=== PATIENT | male | born 1965 | race Caucasian/White ===

== ENCOUNTER 2016-07-11 22:10 | Emergency (ER) | payer BC, MEDICARE ==
[~2016-07-11] VITALS: Ht 180.3 cm; Wt 99.0 kg
[~2016-07-11 22:10] MED LIST: /CARB20TAB OR; CATA0.1T; DIOV160T5; DIOV320T OR; FURO20TA2 OR; LOPR50TA; PROZ20CA; SIMV20TA2 OR; TEGR200T; VICO5TAB OR
[2016-07-11] MEDS ORDERED: FLUO10CA8 PO (22:24)
[2016-07-11] MEDS ORDERED: FENO48TA2 PO (22:24)
[2016-07-11] MEDS ORDERED: NORVASC PO (22:24)
[2016-07-11] MEDS ORDERED: NS 1,000 ML IV ONE (23:00)
[2016-07-11] MEDS ORDERED: ONDANSETRON 4MG/2ML VIAL (J2405) IV ONE (23:00)
[2016-07-11] MEDS ORDERED: IPRATROPIUM 0.5MG/ALBUTEROL 2.5MG INH SOL UD 3ML (DUONEB)(J7620) NEB ONE (23:00)
[2016-07-11 23:13] LABS: BASO % 0.2 % (0.0-1.0); EOS # 0.1 K/mm3 (0.0-0.50); EOS % 0.9 % (0.0-3.0); LARGE UNSTAINED CELL # 0.1 K/mm3 (0.0-0.4); LARGE UNSTAINED CELL % 0.8 % (0.0-4.0); LYMPH # 1.2 K/mm3 (1.5-4.5); LYMPH % 7.5 % (24.0-44.0); MEAN CORPUSCULAR HEMOGLOBIN 32.2 pg (27.0-33.0); MEAN CORPUSCULAR HGB CONC 35.4 g/dl (32.0-36.5); MEAN CORPUSCULAR VOLUME 90.9 fl (80.0-96.0); MONO # 0.6 K/mm3 (0.0-0.8); MONO % 4.1 % (0.0-5.0); NEUTROPHILS # 12.3 K/mm3 (1.8-7.7); NEUTROPHILS % 86.6 % (36.0-66.0); PLATELET COUNT, AUTOMATED 214 k/mm3 (150-450); RED CELL DISTRIBUTION WIDTH 12.1 % (11.5-14.5); WHITE BLOOD COUNT 14.2 K/mm3 (4.0-10.0)
[2016-07-11 23:37] LABS: ANION GAP 9 MEQ/L (8-16); BLOOD UREA NITROGEN 15 MG/DL (7-18); CALCIUM LEVEL 8.7 MG/DL (8.5-10.1); CARBON DIOXIDE LEVEL 26 MEQ/L (21-32); CHLORIDE LEVEL 95 MEQ/L (98-107); CREATININE FOR GFR 0.97 MG/DL (0.70-1.30); GLOMERULAR FILTRATION RATE > 60.0 (>56); GLUCOSE, FASTING 106 MG/DL (70-105); POTASSIUM SERUM 4.1 MEQ/L (3.5-5.1); SODIUM LEVEL 130 MEQ/L (136-145)
[2016-07-11] MEDS: fentaNYL 100 MCG/2 ML INJECTION (J3010) IV PRN (23:39)
[2016-07-12] MEDS ORDERED: BENZONATATE 100 MG CAP PO ONE (00:30)
[2016-07-12] MEDS ORDERED: LevoFLOXacin IV 750 MG in APPROPRIATE DILUENT 1 EA IV ONE (00:30)
[2016-07-12] MEDS ORDERED: KETOROLAC 30 MG/ML VIAL (J1885) IV ONE (00:30)
[2016-07-12] MEDS: fentaNYL 100 MCG/2 ML INJECTION (J3010) IV PRN ×3 (00:33→02:38)
[2016-07-12 02:43] VITALS: BP 112/62
[2016-07-12] MEDS ORDERED: LEVO750T33 PO ×2 (02:53→23:45)
[2016-07-12] MEDS ORDERED: OXYC1TAB23 PO ×2 (02:53→23:45)
[2016-07-12] MEDS ORDERED: OXYCODONE/APAP 5MG/325MG(BULK FOR ED) 1 TABLET PO ONE (03:00)
[2016-07-12] MEDS ORDERED: ALBUTEROL 90 MCG/ACT 8GM HFA INHALER INH PRN (03:00)
--- NOTE | 2016-07-12 08:16 | REP ---
Clinical: Chest pain. Technique: PA and lateral. Comparison: 06/09/2009. Findings: The mediastinum and cardiac silhouette are relatively normal. However, subtle adenopathy as well as left suprahilar infiltrate cannot be excluded. No further consolidation, effusion, or pneumothorax. Skeletal structures are intact. Impression: Cannot exclude hilar adenopathy and small left suprahilar infiltrate. Signed by Yared Trevizo MD 07/12/2016 08:07 A
--- NOTE | 2016-07-12 09:28 | ECGEPIP ---
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
[2016-07-12] MEDS ORDERED: AMLO10TA2 PO (18:40)
[2016-07-12] MEDS ORDERED: FENO160T10 PO (23:45)
[2016-07-12] MEDS ORDERED: VALS320T PO (23:45)
[2016-07-12] MEDS ORDERED: ATOR40TA PO (23:45)
[2016-07-12] MEDS ORDERED: CARB1TAB20 PO (23:45)
[2016-07-12] MEDS ORDERED: METO25TA74 PO (23:46)
[2016-07-12] MEDS ORDERED: HYDR-4266 PO (23:46)
[2016-07-12] MEDS ORDERED: IBUPOTC PO (23:47)
== END 2016-07-12 03:20 | disposition home or self-care (01) ==
LOC: M ED 23:22
DX: J18.1 Lobar pneumonia, unspecified organism (principal); F17.200 Nicotine dependence, unspecified, uncomplicated; Z79.899 Other long term (current) drug therapy; Z88.5 Allergy status to narcotic agent

== ENCOUNTER 2016-07-12 18:28 | Inpatient (IN) | payer MEDICARE ==
[~2016-07-12] VITALS: Ht 182.9 cm; Wt 99.5 kg
[~2016-07-12 18:28] MED LIST changes: +FENO48TA2 PO; +FLUO10CA8 PO; +LEVO750T33 PO; +NORVASC PO; +OXYC1TAB23 PO
[2016-07-12] MEDS ORDERED: AMLO10TA2 PO (18:40)
--- NOTE | 2016-07-12 19:17 | REP ---
Clinical: Dyspnea and cough. Comparison: 07/11/2016. Findings: Left suprahilar opacity has increased from prior examination. Trace left basilar atelectasis noted. Right hemithorax appears clear. No pneumothorax. Mediastinum and cardiac silhouette normal. Impression: Left suprahilar infiltrate/opacity and left basilar atelectasis. Signed by Yared Trevizo MD 07/12/2016 07:08 P
[2016-07-12] MEDS ORDERED: IPRATROPIUM 0.5MG/ALBUTEROL 2.5MG INH SOL UD 3ML (DUONEB)(J7620) As Ordered ONE (19:38)
[2016-07-12] MEDS: IPRATROPIUM 0.5MG/ALBUTEROL 2.5MG INH SOL UD 3ML (DUONEB)(J7620) NEB SCH ×3 (19:42→20:25)
[2016-07-12] MEDS ORDERED: PIPERACILLIN/TAZOBACTAM SOD 3.375 GM in D5W MINI-BAG PLUS 50 ML IV ONE (19:45)
[2016-07-12] MEDS ORDERED: ONDANSETRON 4MG/2ML VIAL (J2405) IV ONE (19:45)
[2016-07-12] MEDS ORDERED: ONDANSETRON 4MG/2ML VIAL (J2405) As Ordered ONE (19:45)
--- NOTE | 2016-07-12 19:53 | ECGEPIP ---
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
[2016-07-12] MEDS ORDERED: NS 1,000 ML IV ONE (20:00)
[2016-07-12] MEDS: HYDROmorphone HCL 1 MG/ML SYRINGE (J1170) IV PRN ×2 (20:06→23:11)
[2016-07-12] MEDS ORDERED: ISOVUE-370 76% 100ML VIAL (Q9967) As Ordered ONE (20:12)
--- NOTE | 2016-07-12 21:40 | REPUSA ---
CT angiogram of the chest Clinical statement: shortness of breath. Technique: Multiple axial CT images were obtained from the thoracic inlet through the upper abdomen a fter a bolus administration of nonionic intravenous contrast. Coronal and sagittal reconstructions we re also obtained. No comparison is available. Findings: The pulmonary arteries are well-opacified with contrast, with no intraluminal filling defec ts to suggest embolism. The thoracic aorta is unremarkable. Thyroid gland is within normal limits. Th ere is no thoracic lymphadenopathy. There is consolidation and infiltrate in the left upper lobe. The re is a moderate left-sided pleural effusion. There is minimal atelectasis in the right lung base. Sm all moderate emphysema is noted. Limited imaging of the upper abdomen is unremarkable. There are no s uspicious osseous lesions. Impression: 1. No evidence of pulmonary embolism. 2. Left upper lobe pneumonia. 3. Small left-sided pleural effusion. 4. Minimal atelectasis in the right lung base.
[2016-07-12] MEDS ORDERED: HYDROmorphone HCL 1 MG/ML SYRINGE (J1170) IV PRN (23:00)
[2016-07-12] MEDS ORDERED: OXYC1TAB23 PO (23:45)
[2016-07-12] MEDS ORDERED: ATOR40TA PO (23:45)
[2016-07-12] MEDS ORDERED: FENO160T10 PO (23:45)
[2016-07-12] MEDS ORDERED: CARB1TAB20 PO (23:45)
[2016-07-12] MEDS ORDERED: VALS320T PO (23:45)
[2016-07-12] MEDS ORDERED: LEVO750T33 PO (23:45)
[2016-07-12] MEDS ORDERED: METO25TA74 PO (23:46)
[2016-07-12] MEDS ORDERED: HYDR-4266 PO (23:46)
[2016-07-12] MEDS ORDERED: IBUPOTC PO (23:47)
[2016-07-13] VITALS (8 sets, daily range): BP systolic 117–141; BP diastolic 61–72; PULSE 77–83
[2016-07-13] MEDS ORDERED: NS 1,000 ML IV SCH (00:03)
[2016-07-13] MEDS ORDERED: ONDANSETRON 4MG/2ML VIAL (J2405) IV PRN (00:15)
[2016-07-13] MEDS ORDERED: ALBUTEROL SULFATE 2.5 MG/0.5 ML INH NEB SOLN INH PRN (00:30)
--- NOTE | 2016-07-13 00:55 | HPEPDOC ---
Medical History and Physical Date of Admission Jul 13, 2016 at 00:03 History and Physical PRIMARY CARE PROVIDER: ATTENDING: Toya Corona MD CHIEF COMPLAINT: SOB/Cough HISTORY OF PRESENT ILLNESS: This is a 50-year-old male past medical history alcohol abuse, pancreatitis, cerebral aneurysm status post clipping, tobacco abuse who presents complaining of shortness of breath and cough. Patient states that his shortness of breath and cough started 5-6 days ago. No sick contacts or recent travels. Patient was seen last night in the emergency department, found to have a left upper lobe pneumonia, placed on Levaquin and discharged home. Patient states he went home and his dyspnea and cough progressively worsened. Patient had fevers and chills, with a notable fever 100.7 in the ED. No nausea/ vomiting/abdominal pain/diarrhea. PAST MEDICAL HISTORY: As per HPI PAST SURGICAL HISTORY: None SOCIAL HISTORY: Smoked 1 1/2-2ppd since he was 16. Occasional alcohol (6pack/ week), no illicit drugs. Lives with . FAMILY HISTORY:Non contrib. ALLERGIES: Please see below. REVIEW OF SYSTEMS: HEENT: Denies sore throat/headache CARDIOVASCULAR: Denies chest pain/palpitations RESPIRATORY: + shortness of breath/cough GASTROINTESTINAL: denies nausea/vomiting GENITOURINARY: Denies dysuria/urinary urgency. MUSCULOSKELETAL: Denies myalgias/arthralgias NEUROLOGICAL: Denies any focal weakness Rest of ROS negative. HOME MEDICATIONS: Please see below. PHYSICAL EXAMINATION: Vitals: (see below) General: No acute distress, laying comfortably in bed. HEENT: Moist mucous membranes. Neck: No JVD or lymphadenopathy Cardiac: RRR, No murmurs Pulm: Diminished breath sound left. Mild exp wheezing. No rhonchi Abd: NT/ND + BS Ext: No edema or cyanosis LABORATORY DATA: See below. IMAGING: CTA Chest 07/12/16 Findings: The pulmonary arteries are well-opacified with contrast, with no intraluminal filling defects to suggest embolism. The thoracic aorta is unremarkable. Thyroid gland is within normal limits. There is no thoracic lymphadenopathy. There is consolidation and infiltrate in the left upper lobe. There is a moderate left-sided pleural effusion. There is minimal atelectasis in the right lung base. Small moderate emphysema is noted. Limited imaging of the upper abdomen is unremarkable. There are no suspicious osseous lesions. Impression: 1. No evidence of pulmonary embolism. 2. Left upper lobe pneumonia. 3. Small left-sided pleural effusion. 4. Minimal atelectasis in the right lung base. MICROBIOLOGY: Please see below. ASSESSMENT/PLAN: 1. Sepsis 2/2 CAP - Seen in ED last night, now with worsening cough/sob. Fevers/ chills, leukocytosis, tachypnea. Parapneumonia effusion on CTA chest. Levaquin IV, nebs, Mucinex. Blood/sputum cx. Urine strep/legionella. IVF. Lactic acid 1.1. Will monitor in PCU. 2. COPD exacerbation 2/2 #1. Nebs, solumedrol. 3. HTN - hold home meds as pt is borderline hypotensive. 4. Tobacco abuse - cessation counseling 5. H/o pancreatitis 6. H/o cerebral aneurysm s/p clipping 7. DVT prophy- enoxaparin Pt will be followed by Dr. Palma Pollock starting 07/13/16 at 7am. Vital Signs Vital Signs Date Time Temp Pulse Resp B/P Pulse Ox O2 Delivery O2 Flow Rate FiO2 07/12/16 18:28 98.0 80 21 126/62 95 Room Air Laboratory Data Labs 24H Laboratory Tests 2 07/12/16 19:18: Anion Gap 11, White Blood Count 15.7H, Red Blood Count 3.89L, Hemoglobin 12.5L, Hematocrit 34.7L, Mean Corpuscular Volume 89.2, Mean Corpuscular Hemoglobin 32.1 , Mean Corpuscular Hemoglobin Concent 36.0, Red Cell Distribution Width 11.8, Platelet Count 211, Neutrophils (%) (Auto) 85.5H, Lymphocytes (%) (Auto) 7.8L, Monocytes (%) (Auto) 5.0, Eosinophils (%) (Auto) 0.1, Basophils (%) (Auto) 0.1, Neutrophils # (Auto) 13.4H, Lymphocytes # (Auto) 1.2L, Monocytes # (Auto) 0.8, Eosinophils # (Auto) 0.0, Basophils # (Auto) 0.0, Blood Urea Nitrogen 15, Creatinine 0.93, Sodium Level 128L, Potassium Level 3.9, Chloride Level 95L, Carbon Dioxide Level 22, Calcium Level 7.8L, Glomerular Filtration Rate > 60.0, Lactic Acid Level 1.1, Large Unclassified Cells # 0.2, Large Unclassified Cells % 1.4 07/12/16 19:48: Blood Gas Bicarbonate Standard 24.8, Venous Blood Base Excess 0.4, Venous Blood pH 7.463H, Venous Blood Partial Pressure CO2 33.7L, Venous Blood Partial Pressure O2 87.8H, Venous Blood Total Carbon Dioxide 24.6, Venous Blood HCO3 23.6, Venous Blood Oxygen Saturation 97.3H 07/13/16 00:13: CBC/BMP Laboratory Tests 07/12/16 19:18 Calcium Level 7.8 L, Red Blood Count 3.89 L, Mean Corpuscular Volume 89.2, Mean Corpuscular Hemoglobin 32.1, Mean Corpuscular Hemoglobin Concent 36.0, Red Cell Distribution Width 11.8, Neutrophils (%) (Auto) 85.5 H, Lymphocytes (%) (Auto) 7.8 L, Monocytes (%) (Auto) 5.0, Eosinophils (%) (Auto) 0.1, Basophils (%) (Auto ) 0.1, Neutrophils # (Auto) 13.4 H, Lymphocytes # (Auto) 1.2 L, Monocytes # ( Auto) 0.8, Eosinophils # (Auto) 0.0, Basophils # (Auto) 0.0 Microbiology Microbiology 07/12/16 Blood Culture, Received Pending 07/12/16 Blood Culture, Received Pending Home Medications Scheduled (Valsartan/Hydrochlorothia 320-12.5 mg) 1 Tab Tab 1 TAB PO DAILY Amlodipine Besylate (Amlodipine Besylate) 10 Mg Tab 10 MG PO DAILY Atorvastatin Calcium (Atorvastatin Calcium) 40 Mg Tab 40 MG PO DAILY Carbamazepine (Carbamazepine) 200 Mg Tab 200 MG PO TID Fenofibrate (Fenofibrate) 160 Mg Tab 160 MG PO DAILY Fluoxetine Hcl (Fluoxetine) 10 Mg Cap Unknown Dose PO DAILY Hydralazine HCl (Hydralazine HCl) 25 Mg Tab 25 MG PO TID Levofloxacin Hemihydrate (Levofloxacin) 750 Mg Tab 750 MG PO DAILY FOR 7 DAYS; STARTED 07/12/2016 Metoprolol Succinate (Metoprolol Succinate ER) 25 Mg Tab 25 MG PO DAILY Scheduled PRN Ibuprofen (Ibuprofen) 200 Mg Tab 400 MG PO Q6H PRN PRN PAIN Oxycodone/Acetaminophen (Oxycodone/Acetaminophen 5-325 mg) 1 Tab Tab 1 TAB PO Q6H PRN PRN PAIN Allergies Coded Allergies: Morphine (Verified Allergy, Unknown, 07/11/16) TOYA CORONA MD Jul 13, 2016 00:55
[2016-07-13] MEDS: methylPREDNISolone INJ 40 MG/1 ML VIAL (J2920) IV SCH ×3 (02:41→23:56)
[2016-07-13] MEDS: IBUPROFEN 400 MG TAB PO PRN ×3 (02:44→20:35)
[2016-07-13] MEDS ORDERED: VANCOMYCIN HCL 1,000 MG, VIAL MATE ADAPTER 1 EACH in D5W 250 ML IV ONE (03:00)
[2016-07-13] MEDS: IPRATROPIUM 0.5MG/ALBUTEROL 2.5MG INH SOL UD 3ML (DUONEB)(J7620) NEB SCH ×5 (03:33→19:51)
--- NOTE | 2016-07-13 06:48 | PHACANCOPD ---
PHARMACY VANCOMYCIN DOSING Pt Demographics Demographics Patient Age:50 , Weight:99.100 , Gender: male Adjusted Body Weight Date: 07/13/16, Adjusted Body Weight: [86.2] Kg Vancomycin Vancomycin indication: CAP/SEPSIS Vancomycin Target Ranges: 15-20 mcg/ml Vancomycin Load Y/N: No Load Dose Date Time Vancomycin Load Dose: Date: Time: Vancomycin Dose Date: 07/13/16. Current Vancomycin Dose: [1GM@03,THEN 1 gm IV Q8H@08] Intermittent Dosing?: No Labs Labs Laboratory Tests 07/12/16 19:18 Calcium Level 7.8 L, Red Blood Count 3.89 L, Mean Corpuscular Volume 89.2, Mean Corpuscular Hemoglobin 32.1, Mean Corpuscular Hemoglobin Concent 36.0, Red Cell Distribution Width 11.8, Neutrophils (%) (Auto) 85.5 H, Lymphocytes (%) (Auto) 7.8 L, Monocytes (%) (Auto) 5.0, Eosinophils (%) (Auto) 0.1, Basophils (%) (Auto ) 0.1, Neutrophils # (Auto) 13.4 H, Lymphocytes # (Auto) 1.2 L, Monocytes # ( Auto) 0.8, Eosinophils # (Auto) 0.0, Basophils # (Auto) 0.0 Micro Microbiology 07/12/16 Blood Culture, Received Pending 07/12/16 Blood Culture, Received Pending 07/13/16 Influenza Virus Type A Antigen - Final, Complete 07/13/16 Influenza Virus Type B Antigen - Final, Complete 07/13/16 Gram Stain, Received Pending 07/13/16 Sputum Culture, Received Pending Creatinine Clearance Date:07/13/16. Creatinine Clearance: [114.5]CALCULATED. Pending Labs Vancomycin trough due 07/14 @0600 Assessment and Plan Maintaining Current Dose?: Yes Reason for dose change: No Dose Change Pharmacist Note Pharmacist Note Date: 07/13/16. Pharmacist note:50 YO M SCR=0.93 XTTK=036.5(calculated) allergy: morphine:admitted for treatment of CAP/sepsis(15-20);has ordered :Levofloxacin 500mg IVdaily & Vancomycin per consult. Gave 1 Gram@0300 07/13,followed by a regimen of 1 gram IV q8h beginning at 1000.Vancomycin trough is ordered with am labs on 07/14.Will continue to follow levels and labs JHON HUSTON PHARMACY Jul 13, 2016 06:48
[2016-07-13] MEDS: VANCOMYCIN HCL 1,000 MG, VIAL MATE ADAPTER 1 EACH in D5W 250 ML IV SCH ×3 (08:32→23:56)
[2016-07-13] MEDS ORDERED: LevoFLOXacin IV 500 MG in APPROPRIATE DILUENT 1 EA IV SCH (09:00)
[2016-07-13] MEDS: guaiFENesin ER 600 MG TAB PO SCH ×2 (09:05→20:34)
[2016-07-13] MEDS: carBAMazepine 200 MG TAB PO SCH ×3 (09:05→20:34)
[2016-07-13] MEDS: ATORVASTATIN 20 MG TAB PO SCH (09:05)
[2016-07-13] MEDS: ENOXAPARIN 40 MG/0.4 ML SYRINGE (J1650) SC SCH (09:05)
--- NOTE | 2016-07-13 09:52 | IPNPDOC ---
Subjective Date Seen The patient was seen on 07/13/16. Subjective Chief Complaint/HPI The patient is a 50-year-old male admitted with a reason for visit of Left Upper Lobe Pneumonia/Sepsis. Events since last encounter cough and shortness of breath much improved today , no further fever no chills, no nausea or vomiting or diarrhea. Objective Physical Examination General Exam: Positive: Alert, Cooperative, No Acute Distress Eye Exam: Positive: Conjunctiva & lids normal, EOMI, PERRLA, Negative: Sclera icteric ENT Exam: Positive: Atraumatic, Mucous membr. moist/pink, Pharynx Normal Neck Exam: Positive: Supple, Negative: JVD, thyromegaly Chest Exam: Positive: Clear to auscultation, Normal air movement Heart Exam: Positive: Normal S1, Normal S2, Rate Normal, Regular Rhythm, Negative: Murmurs, Rubs Abdomen Exam: Positive: Normal bowel sounds, Soft, Negative: Hepatospenomegaly, Tenderness Extremity Exam: Positive: Normal pulses, Negative: Clubbing, Cyanosis, Edema Skin Exam: Positive: Nl turgor and temperature, Negative: Breakdown, Rash Assessment /Plan Problems (1) Left upper lobe pneumonia Status: Acute Problem Text: will continue levofloxacin and vncomycin. (2) Sepsis Status: Acute Problem Text: from pneumonia continue antibiotics. (3) Hyponatremia Status: Chronic Problem Text: chronic will monitor. (4) Alcohol abuse Status: Chronic Problem Text: last drink 5 days ago no signs of withdrawal. (5) History of cerebral aneurysm repair Status: Chronic (6) Depression Status: Chronic (7) Tobacco abuse Status: Chronic Plan/VTE VTE Prophylaxis Ordered?: Yes VS, [facility]O, [facility] Vital Signs/I&O Vital Signs Date Time Temp Pulse Resp B/P Pulse Ox O2 Delivery O2 Flow Rate FiO2 07/13/16 08:00 98.6 80 22 132/72 94 Room Air I&O- Last 24 Hours up to 6 AM 07/13/16 06:00 Intake Total 600 ml Balance 600 ml Laboratory Data 24H LABS Laboratory Tests 2 07/12/16 19:18: Anion Gap 11, White Blood Count 15.7H, Red Blood Count 3.89L, Hemoglobin 12.5L, Hematocrit 34.7L, Mean Corpuscular Volume 89.2, Mean Corpuscular Hemoglobin 32.1 , Mean Corpuscular Hemoglobin Concent 36.0, Red Cell Distribution Width 11.8, Platelet Count 211, Neutrophils (%) (Auto) 85.5H, Lymphocytes (%) (Auto) 7.8L, Monocytes (%) (Auto) 5.0, Eosinophils (%) (Auto) 0.1, Basophils (%) (Auto) 0.1, Neutrophils # (Auto) 13.4H, Lymphocytes # (Auto) 1.2L, Monocytes # (Auto) 0.8, Eosinophils # (Auto) 0.0, Basophils # (Auto) 0.0, Blood Urea Nitrogen 15, Creatinine 0.93, Sodium Level 128L, Potassium Level 3.9, Chloride Level 95L, Carbon Dioxide Level 22, Calcium Level 7.8L, Glomerular Filtration Rate > 60.0, Lactic Acid Level 1.1, Large Unclassified Cells # 0.2, Large Unclassified Cells % 1.4 07/12/16 19:48: Blood Gas Bicarbonate Standard 24.8, Venous Blood Base Excess 0.4, Venous Blood pH 7.463H, Venous Blood Partial Pressure CO2 33.7L, Venous Blood Partial Pressure O2 87.8H, Venous Blood Total Carbon Dioxide 24.6, Venous Blood HCO3 23.6, Venous Blood Oxygen Saturation 97.3H 07/13/16 00:13: Blood Gas Bicarbonate Standard 23.1, Venous Blood Base Excess -1.5, Venous Blood pH 7.426, Venous Blood Partial Pressure CO2 34.7L, Venous Blood Partial Pressure O2 58.2H, Venous Blood Total Carbon Dioxide 23.4L, Venous Blood HCO3 22.3L, Venous Blood Oxygen Saturation 91.6H, Creatine Kinase MB 1.0, Creatine Kinase MB Relative Index 0.87, Total Creatine Kinase 114, Troponin I < 0.02 07/13/16 02:24: 07/13/16 07:24: Blood Urea Nitrogen 11, Creatinine 0.73, Sodium Level 129L, Potassium Level 3.8 , Chloride Level 97L, Carbon Dioxide Level 23, Calcium Level 8.4L, Aspartate Amino Transf (AST/SGOT) 18, Alanine Aminotransferase (ALT/SGPT) 18, Alkaline Phosphatase 56, Total Bilirubin 0.4, Total Protein 6.6, Albumin 2.8L, Albumin/ Globulin Ratio 0.74L, Anion Gap 9, White Blood Count 20.0H, Red Blood Count 3.71L, Hemoglobin 12.0L, Hematocrit 34.3L, Mean Corpuscular Volume 92.3, Mean Corpuscular Hemoglobin 32.3, Mean Corpuscular Hemoglobin Concent 34.9, Red Cell Distribution Width 12.1, Platelet Count 193, Neutrophils (%) (Auto) 91.3H, Lymphocytes (%) (Auto) 3.7L, Monocytes (%) (Auto) 4.0, Eosinophils (%) (Auto) 0.1, Basophils (%) (Auto) 0.1, Neutrophils # (Auto) 18.3H, Lymphocytes # (Auto) 0.9L, Monocytes # (Auto) 0.8, Eosinophils # (Auto) 0.0, Basophils # (Auto) 0.0, C-Reactive Protein, Quantitative 27.00H, Creatine Kinase MB 1.1, Creatine Kinase MB Relative Index 0.82, Glomerular Filtration Rate > 60.0, Large Unclassified Cells # 0.2, Large Unclassified Cells % 0.9, Total Creatine Kinase 133, Troponin I < 0.02 CBC/BMP Laboratory Tests 07/12/16 19:18 Calcium Level 7.8 L, Red Blood Count 3.89 L, Mean Corpuscular Volume 89.2, Mean Corpuscular Hemoglobin 32.1, Mean Corpuscular Hemoglobin Concent 36.0, Red Cell Distribution Width 11.8, Neutrophils (%) (Auto) 85.5 H, Lymphocytes (%) (Auto) 7.8 L, Monocytes (%) (Auto) 5.0, Eosinophils (%) (Auto) 0.1, Basophils (%) (Auto ) 0.1, Neutrophils # (Auto) 13.4 H, Lymphocytes # (Auto) 1.2 L, Monocytes # ( Auto) 0.8, Eosinophils # (Auto) 0.0, Basophils # (Auto) 0.0 07/13/16 07:24 Calcium Level 8.4 L, Red Blood Count 3.71 L, Mean Corpuscular Volume 92.3, Mean Corpuscular Hemoglobin 32.3, Mean Corpuscular Hemoglobin Concent 34.9, Red Cell Distribution Width 12.1, Neutrophils (%) (Auto) 91.3 H, Lymphocytes (%) (Auto) 3.7 L, Monocytes (%) (Auto) 4.0, Eosinophils (%) (Auto) 0.1, Basophils (%) (Auto ) 0.1, Neutrophils # (Auto) 18.3 H, Lymphocytes # (Auto) 0.9 L, Monocytes # ( Auto) 0.8, Eosinophils # (Auto) 0.0, Basophils # (Auto) 0.0, Aspartate Amino Transf (AST/SGOT) 18, Alanine Aminotransferase (ALT/SGPT) 18, Alkaline Phosphatase 56, Total Bilirubin 0.4, Total Protein 6.6, Albumin 2.8 L Microbiology Microbiology 07/12/16 Blood Culture, Received Pending 07/12/16 Blood Culture, Received Pending 07/13/16 Influenza Virus Type A Antigen - Final, Complete 07/13/16 Influenza Virus Type B Antigen - Final, Complete 07/13/16 Gram Stain - Final, Complete 07/13/16 Sputum Culture - Final, Complete CLARENCE LORA MD Jul 13, 2016 09:52
[2016-07-13] MEDS: LevoFLOXacin 500 MG TABLET PO SCH (11:35)
[2016-07-14] MEDS: IPRATROPIUM 0.5MG/ALBUTEROL 2.5MG INH SOL UD 3ML (DUONEB)(J7620) NEB SCH ×6 (00:16→20:22)
[2016-07-14 02:00] VITALS: BP 148/70
[2016-07-14] MEDS: LevoFLOXacin 500 MG TABLET PO SCH (05:24)
[2016-07-14 06:00] VITALS: BP 152/71
--- NOTE | 2016-07-14 08:30 | PHACANCOPD ---
PHARMACY VANCOMYCIN DOSING Pt Demographics Demographics Patient Age:50 , Weight:99.500 , Gender: male Adjusted Body Weight Date: 07/13/16, Adjusted Body Weight: [86.2] Kg Events Past 24 Hours Events Past 24 Hours: YES: Change in CrCl Vancomycin Vancomycin indication: CAP/SEPSIS Vancomycin Target Ranges: 15-20 mcg/ml Vancomycin Load Y/N: No Load Dose Date Time Vancomycin Load Dose: Date: Time: Vancomycin Dose Date: 07/13/16. Current Vancomycin Dose: [1GM@03,THEN 1 gm IV Q8H@08] Intermittent Dosing?: No Labs Labs Item Value Date Time White Blood Count 20.0 K/mm3 H 07/13/16 0724 White Blood Count 15.8 K/mm3 H 07/14/16 0543 Creatinine 0.73 MG/DL 07/13/16 0724 Creatinine 0.56 MG/DL L 07/14/16 0543 Micro Microbiology 07/12/16 Blood Culture - Preliminary, Resulted No growth after 24 hours . All specim... 07/12/16 Blood Culture - Preliminary, Resulted No growth after 24 hours . All specim... 07/13/16 Influenza Virus Type A Antigen - Final, Complete 07/13/16 Influenza Virus Type B Antigen - Final, Complete 07/13/16 Gram Stain - Final, Complete 07/13/16 Sputum Culture - Final, Complete Creatinine Clearance Date:07/13/16. Creatinine Clearance: [114.5]CALCULATED. Pending Labs Date:07/14/16. Creatinine Clearance: [171.3ML/MIN.]. Vancomycin trough due 07/14 @0600 Assessment and Plan Maintaining Current Dose?: Yes Reason for dose change: Trough too low Pharmacist Note Pharmacist Note Date: 07/14/16. Pharmacist note: Pts trough came back today @ 5:43pm @8.4mcg/ml. An additional 1g was scheduled at 9am, 1g q8h will continue @16. A trough is scheduled for 07/15/16 @0700. We will continue to monitor and adjust dose as needed. Date: 07/13/16. Pharmacist note:50 YO M SCR=0.93 EEWI=973.5(calculated) allergy: morphine:admitted for treatment of CAP/sepsis(15-20);has ordered :Levofloxacin 500mg IVdaily & Vancomycin per consult. Gave 1 Gram@0300 07/13,followed by a regimen of 1 gram IV q8h beginning at 1000.Vancomycin trough is ordered with am labs on 07/14.Will continue to follow levels and labs DIANA TRUJILLO PHARMACY Jul 14, 2016 08:30
[2016-07-14] MEDS ORDERED: VANCOMYCIN HCL 1,000 MG, VIAL MATE ADAPTER 1 EACH in D5W 250 ML IV ONE (09:00)
[2016-07-14] MEDS: guaiFENesin ER 600 MG TAB PO SCH ×2 (09:25→20:29)
[2016-07-14] MEDS: VANCOMYCIN HCL 1,000 MG, VIAL MATE ADAPTER 1 EACH in D5W 250 ML IV SCH ×3 (09:25→23:29)
[2016-07-14] MEDS: ATORVASTATIN 20 MG TAB PO SCH (09:25)
[2016-07-14] MEDS: predniSONE 20 MG TAB PO SCH (09:25)
[2016-07-14] MEDS: carBAMazepine 200 MG TAB PO SCH ×3 (09:25→20:29)
[2016-07-14] MEDS: ENOXAPARIN 40 MG/0.4 ML SYRINGE (J1650) SC SCH (09:26)
[2016-07-14 10:00] VITALS: BP 155/83
--- NOTE | 2016-07-14 10:37 | IPNPDOC ---
Subjective Date Seen The patient was seen on 07/14/16. Subjective Chief Complaint/HPI The patient is a 50-year-old male admitted with a reason for visit of Left Upper Lobe Pneumonia/Sepsis. Events since last encounter feeling better , still has some cough and pleuritic chest pain which worsens with coughing, low grade fever last night. Objective Physical Examination General Exam: Positive: Alert, Cooperative, No Acute Distress Eye Exam: Positive: Conjunctiva & lids normal, EOMI, PERRLA, Negative: Sclera icteric ENT Exam: Positive: Atraumatic, Mucous membr. moist/pink, Pharynx Normal Neck Exam: Positive: Supple, Negative: JVD, thyromegaly Chest Exam: Positive: Clear to auscultation, Normal air movement Heart Exam: Positive: Normal S1, Normal S2, Rate Normal, Regular Rhythm, Negative: Murmurs, Rubs Abdomen Exam: Positive: Normal bowel sounds, Soft, Negative: Hepatospenomegaly, Tenderness Extremity Exam: Positive: Normal pulses, Negative: Clubbing, Cyanosis, Edema Skin Exam: Positive: Nl turgor and temperature, Negative: Breakdown, Rash Assessment /Plan Problems (1) Left upper lobe pneumonia Status: Acute Problem Text: will continue levofloxacin and vncomycin. (2) Hyponatremia Status: Chronic Problem Text: chronic will monitor. (3) Alcohol abuse Status: Chronic Problem Text: last drink 5 days ago no signs of withdrawal. (4) History of cerebral aneurysm repair Status: Chronic (5) Depression Status: Chronic (6) Tobacco abuse Status: Chronic (7) Sepsis Status: Resolved Problem Text: from pneumonia continue antibiotics. Plan/VTE VTE Prophylaxis Ordered?: Yes VS, I&O, 24H, [facility] Vital Signs/I&O Vital Signs Date Time Temp Pulse Resp B/P Pulse Ox O2 Delivery O2 Flow Rate FiO2 07/14/16 06:00 98.0 74 18 152/71 95 Room Air I&O- Last 24 Hours up to 6 AM 07/14/16 05:59 Intake Total 2630 ml Output Total 2475 ml Balance 155 ml Laboratory Data 24H LABS Laboratory Tests 2 07/13/16 16:01: Creatine Kinase MB 1.4, Creatine Kinase MB Relative Index 1.07, Total Creatine Kinase 130, Troponin I < 0.02 07/14/16 05:43: Blood Urea Nitrogen 8, Creatinine 0.56L, Sodium Level 132L, Potassium Level 3.7 , Chloride Level 99, Carbon Dioxide Level 24, Calcium Level 8.4L, Aspartate Amino Transf (AST/SGOT) 14L, Alanine Aminotransferase (ALT/SGPT) 15, Alkaline Phosphatase 55, Total Bilirubin 0.3, Total Protein 6.7, Albumin 2.7L, Albumin/ Globulin Ratio 0.68L, Anion Gap 9, White Blood Count 15.8H, Red Blood Count 3.65L, Hemoglobin 11.6L, Hematocrit 32.7L, Mean Corpuscular Volume 89.8, Mean Corpuscular Hemoglobin 31.9, Mean Corpuscular Hemoglobin Concent 35.5, Red Cell Distribution Width 11.9, Platelet Count 247, Neutrophils (%) (Auto) 91.5H, Lymphocytes (%) (Auto) 3.7L, Monocytes (%) (Auto) 3.5, Eosinophils (%) (Auto) 0.1, Basophils (%) (Auto) 0.1, Neutrophils # (Auto) 14.5H, Lymphocytes # (Auto) 0.6L, Monocytes # (Auto) 0.6, Eosinophils # (Auto) 0.0, Basophils # (Auto) 0.0, C-Reactive Protein, Quantitative 23.10H, Glomerular Filtration Rate > 60.0, Large Unclassified Cells # 0.2, Large Unclassified Cells % 1.2, Vancomycin Level Trough 8.4L CBC/BMP Laboratory Tests 07/14/16 05:43 Calcium Level 8.4 L, Aspartate Amino Transf (AST/SGOT) 14 L, Alanine Aminotransferase (ALT/SGPT) 15, Alkaline Phosphatase 55, Total Bilirubin 0.3, Total Protein 6.7, Albumin 2.7 L, Red Blood Count 3.65 L, Mean Corpuscular Volume 89.8, Mean Corpuscular Hemoglobin 31.9, Mean Corpuscular Hemoglobin Concent 35.5, Red Cell Distribution Width 11.9, Neutrophils (%) (Auto) 91.5 H, Lymphocytes (%) (Auto) 3.7 L, Monocytes (%) (Auto) 3.5, Eosinophils (%) (Auto) 0.1, Basophils (%) (Auto) 0.1, Neutrophils # (Auto) 14.5 H, Lymphocytes # (Auto ) 0.6 L, Monocytes # (Auto) 0.6, Eosinophils # (Auto) 0.0, Basophils # (Auto) 0.0 Microbiology Microbiology 07/12/16 Blood Culture - Preliminary, Resulted No growth after 24 hours . All specim... 07/12/16 Blood Culture - Preliminary, Resulted No growth after 24 hours . All specim... 07/13/16 Influenza Virus Type A Antigen - Final, Complete 07/13/16 Influenza Virus Type B Antigen - Final, Complete 07/13/16 Gram Stain - Final, Complete 07/13/16 Sputum Culture - Final, Complete CLARENCE LORA MD Jul 14, 2016 10:37
[2016-07-14] MEDS: IBUPROFEN 400 MG TAB PO PRN (10:49)
[2016-07-14] MEDS: PANTOPRAZOLE 40MG TAB (PROTONIX) PO SCH (12:39)
[2016-07-14] MEDS ORDERED: IBUPROFEN 400 MG TAB PO ONE (13:00)
[2016-07-14] MEDS: DEXTROMETHORPHAN 60MG/10ML SUSP 90ML BTL(DELSYM) PO PRN (13:42)
[2016-07-14 14:00] VITALS: BP 167/82
[2016-07-14 18:00] VITALS: BP 160/84
[2016-07-14] MEDS: IBUPROFEN 800 MG TAB PO PRN (20:33)
[2016-07-14 22:00] VITALS: BP 163/79
[2016-07-15] MEDS: IPRATROPIUM 0.5MG/ALBUTEROL 2.5MG INH SOL UD 3ML (DUONEB)(J7620) NEB SCH ×5 (00:06→16:00)
[2016-07-15 02:00] VITALS: BP 158/84
[2016-07-15] MEDS: DEXTROMETHORPHAN 60MG/10ML SUSP 90ML BTL(DELSYM) PO PRN ×2 (04:36→15:42)
[2016-07-15] MEDS: IBUPROFEN 800 MG TAB PO PRN ×3 (04:37→23:37)
[2016-07-15] MEDS: LevoFLOXacin 500 MG TABLET PO SCH (05:10)
[2016-07-15 06:00] VITALS: BP 147/67
[2016-07-15] MEDS: VANCOMYCIN HCL 1,000 MG, VIAL MATE ADAPTER 1 EACH in D5W 250 ML IV SCH (08:38)
[2016-07-15] MEDS: PANTOPRAZOLE 40MG TAB (PROTONIX) PO SCH (08:42)
[2016-07-15] MEDS: carBAMazepine 200 MG TAB PO SCH ×3 (08:42→20:33)
[2016-07-15] MEDS: ATORVASTATIN 20 MG TAB PO SCH (08:42)
[2016-07-15] MEDS: predniSONE 20 MG TAB PO SCH (08:42)
[2016-07-15] MEDS: ENOXAPARIN 40 MG/0.4 ML SYRINGE (J1650) SC SCH (08:43)
[2016-07-15] MEDS: guaiFENesin ER 600 MG TAB PO SCH ×2 (08:43→20:33)
[2016-07-15] MEDS ORDERED: VANCOMYCIN HCL 1,000 MG, VIAL MATE ADAPTER 1 EACH in D5W 250 ML IV ONE (09:00)
--- NOTE | 2016-07-15 09:10 | PHACANCOPD ---
PHARMACY VANCOMYCIN DOSING Pt Demographics Demographics Patient Age:50 , Weight:99.500 , Gender: male Adjusted Body Weight Date: 07/13/16, Adjusted Body Weight: [86.2] Kg Events Past 24 Hours Events Past 24 Hours: NO: Change in CrCl, Dialysis, Diuretic Therapy, Elevation in WBC, Fever, Other, Pending Diagnostics, Pending Procedures Vancomycin Vancomycin indication: CAP/SEPSIS Vancomycin Target Ranges: 15-20 mcg/ml Vancomycin Load Y/N: No Load Dose Date Time Vancomycin Load Dose: Date: Time: Vancomycin Dose Date: 07/15/16. Current Vancomycin Dose: [2G Q8H @16] Date: 07/13/16. Current Vancomycin Dose: [1GM@03,THEN 1 gm IV Q8H@08] Intermittent Dosing?: No Labs Labs Item Value Date Time Creatinine 0.56 MG/DL L 07/14/16 0543 Creatinine 0.61 MG/DL L 07/15/16 0702 Vancomycin Level Trough 8.4 UG/ML L 07/14/16 0543 Vancomycin Level Trough 7.3 UG/ML L 07/15/16 0702 Micro Microbiology 07/12/16 Blood Culture - Preliminary, Resulted No Growth after 48 hours. All Specime... 07/12/16 Blood Culture - Preliminary, Resulted No Growth after 48 hours. All Specime... 07/13/16 Influenza Virus Type A Antigen - Final, Complete 07/13/16 Influenza Virus Type B Antigen - Final, Complete 07/13/16 Gram Stain - Final, Complete 07/13/16 Sputum Culture - Final, Complete Creatinine Clearance Date:07/15/16. Creatinine Clearance: [157.3ML/MIN.]. Date:07/13/16. Creatinine Clearance: [114.5]CALCULATED. Pending Labs Date:07/14/16. Creatinine Clearance: [171.3ML/MIN.]. Vancomycin trough due 07/14 @0600 Assessment and Plan Maintaining Current Dose?: No Reason for dose change: Trough too low Pharmacist Note Pharmacist Note Date: 07/15/16. Pharmacist note: PTS trough came back low again today 7.3mcg/ml @07:00, half life is estimated at ~5 hours, creatinine clearance is 157ml/min. An additional 1g will be given at 9am, then dosing will be changed to 2g q8h starting at 16. We will continue to monitor and adjust dose as needed. Date: 07/14/16. Pharmacist note: Pts trough came back today @ 5:43pm @8.4mcg/ml. An additional 1g was scheduled at 9am, 1g q8h will continue @16. A trough is scheduled for 07/15/16 @0700. We will continue to monitor and adjust dose as needed. Date: 07/13/16. Pharmacist note:50 YO M SCR=0.93 EGRS=916.5(calculated) allergy: morphine:admitted for treatment of CAP/sepsis();has ordered :Levofloxacin 500mg IVdaily & Vancomycin per consult. Gave 1 Gram@0300 07/13,followed by a regimen of 1 gram IV q8h beginning at 1000.Vancomycin trough is ordered with am labs on 07/14.Will continue to follow levels and labs DIANA TRUJILLO PHARMACY Jul 15, 2016 09:10
[2016-07-15 10:00] VITALS: BP 149/83
--- NOTE | 2016-07-15 11:58 | IPNPDOC ---
Subjective Date Seen The patient was seen on 07/15/16. Subjective Chief Complaint/HPI The patient is a 50-year-old male admitted with a reason for visit of Left Upper Lobe Pneumonia/Sepsis. Events since last encounter pt seen and examined, complaining of sharp left sided chest pain, described as stabbing, Constitutional: Reports: Chills, Fever, Denies: Night Sweats Pulmonary: Reports: Cough, Dyspnea, Pleuritic Chest Pain Objective Physical Examination General Exam: Positive: Alert, Cooperative, No Acute Distress Eye Exam: Positive: Conjunctiva & lids normal, EOMI, PERRLA, Negative: Sclera icteric ENT Exam: Positive: Atraumatic, Mucous membr. moist/pink, Pharynx Normal Neck Exam: Positive: Supple, Negative: JVD, thyromegaly Chest Exam: Positive: Clear to auscultation, Normal air movement Heart Exam: Positive: Normal S1, Normal S2, Rate Normal, Regular Rhythm, Negative: Murmurs, Rubs Abdomen Exam: Positive: Normal bowel sounds, Soft, Negative: Hepatospenomegaly, Tenderness Extremity Exam: Positive: Normal pulses, Negative: Clubbing, Cyanosis, Edema Skin Exam: Positive: Nl turgor and temperature, Negative: Breakdown, Rash Assessment /Plan Problems (1) Left upper lobe pneumonia Status: Acute Problem Text: * will continue levofloxacin and vncomycin. * continue mucinex and Delsym (2) Sepsis Status: Acute Problem Text: * from pneumonia * continue antibiotics. (3) Hyponatremia Status: Chronic Problem Text: chronic will monitor. (4) Alcohol abuse Status: Chronic Problem Text: last drink 5 days ago no signs of withdrawal. (5) History of cerebral aneurysm repair Status: Chronic (6) Depression Status: Chronic (7) Tobacco abuse Status: Chronic Plan/VTE VTE Prophylaxis Ordered?: Yes VS, I&O, 24H, Fishbone Vital Signs/I&O Vital Signs Date Time Temp Pulse Resp B/P Pulse Ox O2 Delivery O2 Flow Rate FiO2 07/15/16 10:00 100.1 77 20 149/83 94 Room Air I&O- Last 24 Hours up to 6 AM 07/15/16 06:00 Intake Total 1590 ml Output Total 200 ml Balance 1390 ml Laboratory Data 24H LABS Laboratory Tests 2 07/15/16 07:02: Blood Urea Nitrogen 9, Creatinine 0.61L, Sodium Level 128L, Potassium Level 3.6 , Chloride Level 95L, Carbon Dioxide Level 25, Calcium Level 8.4L, Aspartate Amino Transf (AST/SGOT) 23, Alanine Aminotransferase (ALT/SGPT) 22, Alkaline Phosphatase 52, Total Bilirubin 0.4, Total Protein 6.4, Albumin 2.5L, Albumin/ Globulin Ratio 0.64L, Anion Gap 8, White Blood Count 10.5H, Red Blood Count 3.55L, Hemoglobin 11.3L, Hematocrit 31.9L, Mean Corpuscular Volume 89.9, Mean Corpuscular Hemoglobin 31.7, Mean Corpuscular Hemoglobin Concent 35.3, Red Cell Distribution Width 11.9, Platelet Count 336, Neutrophils (%) (Auto) 67.8H, Lymphocytes (%) (Auto) 16.6L, Monocytes (%) (Auto) 11.8H, Eosinophils (%) (Auto ) 0.6, Basophils (%) (Auto) 0.2, Neutrophils # (Auto) 7.1, Lymphocytes # (Auto) 1.7, Monocytes # (Auto) 1.2H, Eosinophils # (Auto) 0.1, Basophils # (Auto) 0.0, C-Reactive Protein, Quantitative 12.60H, Glomerular Filtration Rate > 60.0, Large Unclassified Cells # 0.3, Large Unclassified Cells % 2.9, Vancomycin Level Trough 7.3L CBC/BMP Laboratory Tests 07/15/16 07:02 Calcium Level 8.4 L, Aspartate Amino Transf (AST/SGOT) 23, Alanine Aminotransferase (ALT/SGPT) 22, Alkaline Phosphatase 52, Total Bilirubin 0.4, Total Protein 6.4, Albumin 2.5 L, Red Blood Count 3.55 L, Mean Corpuscular Volume 89.9, Mean Corpuscular Hemoglobin 31.7, Mean Corpuscular Hemoglobin Concent 35.3, Red Cell Distribution Width 11.9, Neutrophils (%) (Auto) 67.8 H, Lymphocytes (%) (Auto) 16.6 L, Monocytes (%) (Auto) 11.8 H, Eosinophils (%) ( Auto) 0.6, Basophils (%) (Auto) 0.2, Neutrophils # (Auto) 7.1, Lymphocytes # ( Auto) 1.7, Monocytes # (Auto) 1.2 H, Eosinophils # (Auto) 0.1, Basophils # (Auto ) 0.0 Microbiology Microbiology 07/12/16 Blood Culture - Preliminary, Resulted No Growth after 48 hours. All Specime... 07/12/16 Blood Culture - Preliminary, Resulted No Growth after 48 hours. All Specime... 07/13/16 Influenza Virus Type A Antigen - Final, Complete 07/13/16 Influenza Virus Type B Antigen - Final, Complete 07/13/16 Gram Stain - Final, Complete 07/13/16 Sputum Culture - Final, Complete TEE GARNER DO Jul 15, 2016 11:58
[2016-07-15] MEDS: CYCLOBENZAPRINE 10 MG TAB PO PRN ×2 (12:09→20:33)
[2016-07-15 14:00] VITALS: BP 148/76
[2016-07-15] MEDS: VANCOMYCIN HCL 2,000 MG in D5W 500 ML IV SCH ×2 (15:42→23:37)
[2016-07-15] MEDS ORDERED: IPRATROPIUM 0.02% SOLN 0.5MG/2.5 ML NEB INH PRN (17:45)
[2016-07-15 18:00] VITALS: BP 163/90
[2016-07-15] MEDS ORDERED: ALBUTEROL SULFATE 2.5 MG/0.5 ML INH NEB SOLN INH PRN (18:00)
[2016-07-15 22:00] VITALS: BP 152/69
[2016-07-16 02:00] VITALS: BP 129/62
[2016-07-16] MEDS ORDERED: LIDOCAINE 5% (LIDODERM) PATCH TD PRN ×2 (02:00→13:45)
[2016-07-16] MEDS: ACETAMINOPHEN TAB 650MG DOSE (2X325MG) PO PRN ×2 (02:29→17:33)
[2016-07-16] MEDS: LevoFLOXacin 500 MG TABLET PO SCH (05:43)
[2016-07-16 06:00] VITALS: BP 138/83
[2016-07-16] MEDS: predniSONE 20 MG TAB PO SCH (08:10)
[2016-07-16] MEDS: carBAMazepine 200 MG TAB PO SCH ×3 (08:10→20:16)
[2016-07-16] MEDS: guaiFENesin ER 600 MG TAB PO SCH ×2 (08:10→20:16)
[2016-07-16] MEDS: ATORVASTATIN 20 MG TAB PO SCH (08:10)
[2016-07-16] MEDS: VANCOMYCIN HCL 2,000 MG in D5W 500 ML IV SCH ×2 (08:10→16:09)
[2016-07-16] MEDS: PANTOPRAZOLE 40MG TAB (PROTONIX) PO SCH (08:10)
[2016-07-16] MEDS: ENOXAPARIN 40 MG/0.4 ML SYRINGE (J1650) SC SCH (08:11)
[2016-07-16] MEDS: CYCLOBENZAPRINE 10 MG TAB PO PRN ×2 (09:29→17:33)
[2016-07-16] MEDS: IBUPROFEN 800 MG TAB PO PRN ×2 (09:29→20:17)
[2016-07-16 10:00] VITALS: BP 140/83
[2016-07-16 14:00] VITALS: BP 131/68
[2016-07-16] MEDS: DEXTROMETHORPHAN 60MG/10ML SUSP 90ML BTL(DELSYM) PO PRN (17:34)
[2016-07-16] MEDS ORDERED: **NOTE PATIENT COMMENT** MISC XX PRN (21:00)
[2016-07-16] MEDS ORDERED: LIDOCAINE 5% (LIDODERM) PATCH TD SCH (21:00)
[2016-07-16] MEDS ORDERED: **NOTE PATIENT COMMENT** MISC XX SCH (21:00)
[2016-07-16 22:00] VITALS: BP 141/83
[2016-07-17 02:00] VITALS: BP 143/75
[2016-07-17] MEDS: IBUPROFEN 800 MG TAB PO PRN (05:05)
[2016-07-17] MEDS: CYCLOBENZAPRINE 10 MG TAB PO PRN (05:35)
[2016-07-17 06:00] VITALS: BP 153/87
[2016-07-17] MEDS ORDERED: LevoFLOXacin 750 MG TABLET PO SCH (06:00)
[2016-07-17] MEDS: ENOXAPARIN 40 MG/0.4 ML SYRINGE (J1650) SC SCH (09:00)
[2016-07-17] MEDS: carBAMazepine 200 MG TAB PO SCH (09:24)
[2016-07-17] MEDS: guaiFENesin ER 600 MG TAB PO SCH (09:24)
[2016-07-17] MEDS: PANTOPRAZOLE 40MG TAB (PROTONIX) PO SCH (09:24)
[2016-07-17] MEDS: ATORVASTATIN 20 MG TAB PO SCH (09:24)
[2016-07-17] MEDS: predniSONE 20 MG TAB PO SCH (09:25)
[2016-07-17 10:00] VITALS: BP 122/72
== END 2016-07-17 12:46 | disposition home or self-care (01) | DRG 871 ==
LOC: M ED 19:08 → INTOOBSV 07-13 00:03 → M ED INP 07-13 00:03 → M PCU 07-13 01:52 → M MSPAV 07-13 10:05 → OBSVTOIN 07-15 11:55
PROVIDERS: ADMIT Internal Medicine; ATTEND Internal Medicine
DX: A41.9 Sepsis, unspecified organism (principal); J18.9 Pneumonia, unspecified organism; J44.1 Chronic obstructive pulmonary disease with (acute) exacerbation; E87.1 Hypo-osmolality and hyponatremia; F32.9 Major depressive disorder, single episode, unspecified; F10.10 Alcohol abuse, uncomplicated; F17.210 Nicotine dependence, cigarettes, uncomplicated; I10 Essential (primary) hypertension; Z88.5 Allergy status to narcotic agent; Z79.899 Other long term (current) drug therapy

== ENCOUNTER → 2016-09-22 | Outpatient (REF) | payer MEDICARE ==
[~2016-09-22] MED LIST changes: +AMLO10TA2 PO; +ATOR40TA PO; +CARB1TAB20 PO; +FENO160T10 PO; +HYDR-4266 PO; +IBUPOTC PO; +METO25TA74 PO; +VALS320T PO
== END ==
LOC: M LAB REF 12:50
PROVIDERS: ATTEND Family Medicine
DX: G40.89 Other seizures (principal)

== ENCOUNTER 2017-09-15 05:59 | Day surgery (SDC) | payer MEDICARE ==
[2017-09-15] MEDS ORDERED: LIDOCAINE 1% MDV 20ML VIAL SQ (06:00)
[2017-09-15] MEDS ORDERED: LR 1,000 ML IV ×2 (06:00→09:45)
[2017-09-15] MEDS ORDERED: MIDAZOLAM INJ 2 MG/2 ML VIAL (J2250) As Ordered ×2 (07:07→09:07)
[2017-09-15] MEDS ORDERED: LIDOCAINE 2% INJ 100 MG/5 ML SDV (FOR ANES.) As Ordered (07:07)
[2017-09-15] MEDS ORDERED: PROPOFOL 200 MG/20 ML VIAL As Ordered (07:07)
[2017-09-15] MEDS ORDERED: ROCURONIUM BROMIDE 50 MG/5 ML VIAL As Ordered ×2 (07:07→07:48)
[2017-09-15] MEDS ORDERED: fentaNYL 100 MCG/2 ML INJECTION (J3010) As Ordered ×2 (07:08)
[2017-09-15] MEDS: ceFAZolin SOD 1 GM in D5W MINI-BAG PLUS 50 ML IV (07:40)
[2017-09-15] MEDS: BUPIVACAINE/EPIN 0.5% 30 ML VIAL As Ordered (08:15)
[2017-09-15] MEDS ORDERED: GLYCOPYRROLATE INJ 0.2 MG/ML 2 ML VIAL As Ordered ×2 (08:46→09:01)
[2017-09-15] MEDS ORDERED: ONDANSETRON 4MG/2ML VIAL (J2405) As Ordered (08:46)
[2017-09-15] MEDS ORDERED: NEOSTIGMINE 10 MG/10 ML VIAL (J2710) As Ordered (08:46)
[2017-09-15] MEDS ORDERED: KETOROLAC 60 MG/2 ML VIAL (J1885) As Ordered (09:03)
[2017-09-15] MEDS ORDERED: ONDANSETRON 4MG/2ML VIAL (J2405) IV ×2 (09:45)
[2017-09-15] MEDS ORDERED: NORCO, ANEXSIA 5/325MG TABLET (HYDROcodone/ACETAMINOPHEN) PO (09:45)
[2017-09-15] MEDS ORDERED: MEPERIDINE INJ 25 MG/ML VIAL (J2175) IV (09:45)
[2017-09-15] MEDS ORDERED: PERCOCET 5MG/325MG TAB PO (09:45)
[2017-09-15] MEDS ORDERED: fentaNYL 100 MCG/2 ML INJECTION (J3010) IV (09:45)
[2017-09-15] MEDS ORDERED: METOCLOPRAMIDE INJ 10MG/2ML VIAL (J2765) IV (09:45)
[2017-09-15] MEDS ORDERED: KETOROLAC 30 MG/ML VIAL (J1885) IV (16:00)
== END 2017-09-15 13:03 | disposition home or self-care (01) ==
LOC: M SDC 05:59
DX: K40.90 Unilateral inguinal hernia, without obstruction or gangrene, not specified as recurrent (principal); E78.5 Hyperlipidemia, unspecified; F41.9 Anxiety disorder, unspecified; F32.9 Major depressive disorder, single episode, unspecified; F17.210 Nicotine dependence, cigarettes, uncomplicated; Z79.899 Other long term (current) drug therapy; Z91.030 Bee allergy status; Z88.5 Allergy status to narcotic agent
CPT/HCPCS: 49650

== ENCOUNTER → 2020-03-26 | Outpatient (REF) | payer MEDICARE ==
[~2020-03-26] MED LIST changes: -/CARB20TAB OR; -AMLO10TA2 PO; +AMLO1TAB25 PO; -ATOR40TA PO; +ATOR40TA75 PO; +CARB1TAB20 OR; -FENO48TA2 PO; +FENO48TA7 PO; +FLUO10CA16 PO; -FLUO10CA8 PO; +HYDR-3910 PO; -HYDR-4266 PO; +LEVO750T13 PO; -LEVO750T33 PO; +METO1TAB32 PO; -METO25TA74 PO; -VALS320T PO; +VALS320T2 PO
[2020-03-26 17:16] LABS: PERCENT SATURATION 38.6 % (19.7-50.0)
[2020-03-26 17:25] LABS: FOLATE 15.7 NG/ML
== END ==
LOC: M LAB REF 16:31
PROVIDERS: ATTEND Family Medicine
DX: D64.9 Anemia, unspecified (principal)

== ENCOUNTER 2023-01-21 12:31 | Observation (INO) | payer BC, MEDICARE ==
[~2023-01-21] VITALS: Ht 182.9 cm; Wt 106.1 kg
[~2023-01-21 12:31] MED LIST changes: -FENO48TA7 PO; +FENO48TA8 PO; -FLUO10CA16 PO; +FLUO10CA18 PO; +LEVO1TAB40 PO; -LEVO750T13 PO
[2023-01-21] MEDS ORDERED: ISOVUE-370 76% 100ML VIAL As Ordered ONE (13:06)
[2023-01-21 13:32] LABS: BASO # 0.1 10^3/uL (0.0-0.2); BASO % 0.7 % (0.0-1.0); EOS # 0.2 10^3/uL (0.0-0.5); EOS % 1.5 % (0.0-3.0); HEMATOCRIT 41.5 % (42.0-52.0); HEMOGLOBIN 14.9 g/dl (13.5-17.5); LYMPH # 3.3 10^3/uL (1.5-5.0); LYMPH % 29.8 % (24.0-44.0); MEAN CORPUSCULAR HEMOGLOBIN 32.5 pg (27.0-33.0); MEAN CORPUSCULAR HGB CONC 35.9 g/dl (32.0-36.5); MEAN CORPUSCULAR VOLUME 90.6 fl (80.0-96.0); MONO # 0.7 10^3/uL (0.0-0.8); MONO % 6.1 % (2.0-8.0); NEUTROPHILS # 6.7 10^3/uL (1.5-8.5); NEUTROPHILS % 61.5 % (36.0-66.0); PLATELET COUNT, AUTOMATED 256 10^3/uL (150-450); RED BLOOD COUNT 4.58 10^6/uL (4.30-6.10)
[2023-01-21] MEDS ORDERED: KETOROLAC 30 MG/ML 1ML VIAL IV ONE (13:35)
[2023-01-21 13:43] LABS: PROTHROMBIN TIME 12.9 SECONDS (12.5-14.5)
[2023-01-21 13:44] LABS: PARTIAL THROMBOPLASTIN TIME 25.8 SECONDS (24.8-34.2)
[2023-01-21] MEDS ORDERED: ACET-897 PO (13:48)
[2023-01-21 13:57] LABS: LIPASE 57 U/L (12-53)
[2023-01-21 13:59] LABS: CPK CREATINE PHOSPHOKINASE 82 U/L (46-171)
[2023-01-21 14:03] LABS: RSV AMPLIFICATION NEGATIVE (NEGATIVE)
[2023-01-21 14:20] LABS: ALKALINE PHOSPHATASE 40 U/L (46-116); ALT/SGPT 32 U/L (7.0-40); AST/SGOT 20 U/L (<34); BILIRUBIN,DIRECT 0.1 MG/DL (<0.4); BILIRUBIN,TOTAL 0.5 MG/DL (0.3-1.2); BLOOD UREA NITROGEN 12 MG/DL (9-23); CALCIUM LEVEL 7.5 MG/DL (8.5-10.1); CARBON DIOXIDE LEVEL 24 MMOL/L (20-31); CHLORIDE LEVEL 110 MMOL/L (98-107); CK-MB VALUE MASS < 1.0 NG/ML (<3.6); CREATININE FOR GFR 0.79 MG/DL (0.70-1.30); FREE T4 1.23 NG/DL (0.89-1.76); GLOMERULAR FILTRATION RATE > 60.0 (>56); GLUCOSE, FASTING 108 MG/DL (60-100); MB/CK RELATIVE INDEX 1.21 (< OR =4); POTASSIUM SERUM 2.7 MMOL/L (3.5-5.1); SODIUM LEVEL 143 MMOL/L (136-145); THYROID STIMULATING HORMONE 0.948 uIU/ML (0.55-4.78); TOTAL PROTEIN 5.3 G/DL (5.7-8.2)
[2023-01-21] MEDS ORDERED: POTASSIUM CHLORIDE 10MEQ SR TABLET PO ONE ×2 (14:20→17:30)
[2023-01-21 15:17] LABS: CK-MB VALUE MASS < 1.0 NG/ML (<3.6)
[2023-01-21 15:23] LABS: CPK CREATINE PHOSPHOKINASE 89 U/L (46-171); MB/CK RELATIVE INDEX 1.12 (< OR =4)
[2023-01-21 15:34] LABS: MAGNESIUM LEVEL 1.9 MG/DL (1.8-2.4)
[2023-01-21] MEDS ORDERED: KCL 10MEQ/100ML SWI (KRUN) 10 MEQ in IV 1 EA IV ONE (16:40)
[2023-01-21] MEDS ORDERED: ONDANSETRON 4MG ORAL DISINTEGRATING TAB SL PRN (17:30)
[2023-01-21] MEDS ORDERED: MECLIZINE 25 MG TABLET PO ONE (17:30)
[2023-01-21] MEDS ORDERED: MED REC IN PROGRESS XX SCH (17:35)
[2023-01-21] MEDS ORDERED: MOM 30ML SUSPENSION UDC PO PRN (17:50)
[2023-01-21] MEDS ORDERED: HOME MED LIST COMPLETE! XX SCH (17:50)
[2023-01-21] MEDS ORDERED: KETOROLAC 30 MG/ML 1ML VIAL IV PRN ×2 (18:00)
[2023-01-21] MEDS ORDERED: LORazepam 2 MG TAB PO PRN (18:15)
[2023-01-21 19:33] LABS: CHOLESTEROL LEVEL 274 MG/DL (<200); CHOLESTEROL RISK RATIO 6.28 (<5); HDL CHOLESTEROL 43.6 MG/DL (>40); NON-HDL-C 230.4 MG/DL; TRIGLYCERIDES LEVEL 565 MG/DL (<150)
[2023-01-21 19:35] LABS: HEMOGLOBIN A1c 5.1 % (4.0-6.0)
[2023-01-21 20:10] VITALS: BP 178/92; TEMP 97.9; O2SAT 97
[2023-01-21] MEDS: DOCUSATE SODIUM 100MG CAPSULE PO SCH (21:00)
[2023-01-21] MEDS ORDERED: CAPTOpril 6.25 MG PER 1/2 TABLET PO SCH (21:00)
[2023-01-21] MEDS: THIAMINE 100 MG TAB PO SCH (21:01)
[2023-01-21] MEDS: MAGNESIUM OXIDE 400MG TAB (MAG-OX) PO SCH (21:01)
[2023-01-21] MEDS: ACETAMINOPHEN TAB 650MG DOSE (2X325MG) PO PRN (21:02)
[2023-01-21 22:00] VITALS: BP 171/83
[2023-01-21 22:15] VITALS: BP 171/83
[2023-01-21 23:56] VITALS: BP 148/100; TEMP 97.9; O2SAT 97
[2023-01-22] VITALS (15 sets, daily range): BP systolic 128–196; BP diastolic 71–102; TEMP 96.4–97.6; O2SAT 92–98
[2023-01-22] MEDS: ACETAMINOPHEN TAB 650MG DOSE (2X325MG) PO PRN ×3 (01:16→21:09)
[2023-01-22 07:43] LABS: HEMATOCRIT 39.7 % (42.0-52.0); HEMOGLOBIN 13.7 g/dl (13.5-17.5); MEAN CORPUSCULAR HEMOGLOBIN 32.3 pg (27.0-33.0); MEAN CORPUSCULAR HGB CONC 34.5 g/dl (32.0-36.5); MEAN CORPUSCULAR VOLUME 93.6 fl (80.0-96.0); PLATELET COUNT, AUTOMATED 232 10^3/uL (150-450); RED BLOOD COUNT 4.24 10^6/uL (4.30-6.10); WHITE BLOOD COUNT 8.6 10^3/uL (4.0-10.0)
[2023-01-22 08:13] LABS: BLOOD UREA NITROGEN 16 MG/DL (9-23); CALCIUM LEVEL 8.9 MG/DL (8.5-10.1); CARBON DIOXIDE LEVEL 27 MMOL/L (20-31); CHLORIDE LEVEL 108 MMOL/L (98-107); CHOLESTEROL LEVEL 225 MG/DL (<200); CHOLESTEROL RISK RATIO 5.54 (<5); CREATININE FOR GFR 0.76 MG/DL (0.70-1.30); GLOMERULAR FILTRATION RATE > 60.0 (>56); GLUCOSE, FASTING 107 MG/DL (60-100); HDL CHOLESTEROL 40.6 MG/DL (>40); NON-HDL-C 184.4 MG/DL; POTASSIUM SERUM 4.2 MMOL/L (3.5-5.1); SODIUM LEVEL 139 MMOL/L (136-145); TRIGLYCERIDES LEVEL 237 MG/DL (<150)
[2023-01-22] MEDS: THIAMINE 100 MG TAB PO SCH ×2 (08:21→21:07)
[2023-01-22] MEDS: MAGNESIUM OXIDE 400MG TAB (MAG-OX) PO SCH ×3 (08:21→21:06)
[2023-01-22] MEDS: FOLIC ACID 1MG TAB PO SCH (08:21)
[2023-01-22] MEDS: DOCUSATE SODIUM 100MG CAPSULE PO SCH ×2 (08:21→21:00)
[2023-01-22] MEDS: MULTIVITAMINS/MINERALS THERAP 1 TAB PO SCH (08:22)
[2023-01-22] MEDS: CHLORTHALIDONE 25 MG TAB PO SCH (08:22)
[2023-01-22] MEDS ORDERED: SPIRONOLACTONE 25 MG TAB PO SCH ×2 (09:00→17:00)
[2023-01-22] MEDS ORDERED: **hydrALAZINE HCL** 25 MG TAB PO SCH (14:00)
[2023-01-22] MEDS ORDERED: ISOVUE-370 76% 100ML VIAL As Ordered ONE (14:00)
[2023-01-22] MEDS: ATORVASTATIN 20 MG TAB PO SCH (17:49)
[2023-01-22] MEDS: MECLIZINE 25 MG TABLET PO SCH (17:50)
[2023-01-22] MEDS ORDERED: RIVAROXABAN 10MG TAB (XARELTO) PO SCH (18:00)
[2023-01-22] MEDS ORDERED: **hydrALAZINE** 50 MG TAB PO SCH (22:00)
[2023-01-22] MEDS ORDERED: CAPTOpril 12.5 MG TAB PO SCH (22:00)
[2023-01-23] MEDS: MECLIZINE 25 MG TABLET PO SCH ×3 (00:15→12:16)
[2023-01-23 04:00] VITALS: BP 147/80; TEMP 97.1; O2SAT 93
[2023-01-23 06:00] VITALS: BP 147/80
[2023-01-23 08:14] LABS: HEMATOCRIT 43.2 % (42.0-52.0); HEMOGLOBIN 15.2 g/dl (13.5-17.5); MEAN CORPUSCULAR HEMOGLOBIN 32.8 pg (27.0-33.0); MEAN CORPUSCULAR HGB CONC 35.2 g/dl (32.0-36.5); MEAN CORPUSCULAR VOLUME 93.3 fl (80.0-96.0); PLATELET COUNT, AUTOMATED 250 10^3/uL (150-450); RED BLOOD COUNT 4.63 10^6/uL (4.30-6.10); WHITE BLOOD COUNT 7.7 10^3/uL (4.0-10.0)
[2023-01-23 08:44] LABS: BLOOD UREA NITROGEN 12 MG/DL (9-23); CALCIUM LEVEL 9.5 MG/DL (8.5-10.1); CARBON DIOXIDE LEVEL 30 MMOL/L (20-31); CHLORIDE LEVEL 106 MMOL/L (98-107); CREATININE FOR GFR 0.73 MG/DL (0.70-1.30); GLOMERULAR FILTRATION RATE > 60.0 (>56); GLUCOSE, FASTING 103 MG/DL (60-100); MAGNESIUM LEVEL 1.9 MG/DL (1.8-2.4); POTASSIUM SERUM 4.3 MMOL/L (3.5-5.1); SODIUM LEVEL 140 MMOL/L (136-145)
[2023-01-23 09:00] VITALS: BP 127/78; TEMP 97.4; O2SAT 96
[2023-01-23] MEDS ORDERED: SPIRONOLACTONE 50 MG TAB PO SCH (09:00)
[2023-01-23] MEDS ORDERED: LOSARTAN 50MG TABLET PO SCH (09:00)
[2023-01-23] MEDS: ATORVASTATIN 20 MG TAB PO SCH (09:16)
[2023-01-23] MEDS: THIAMINE 100 MG TAB PO SCH (09:16)
[2023-01-23] MEDS: MULTIVITAMINS/MINERALS THERAP 1 TAB PO SCH (09:16)
[2023-01-23] MEDS: MAGNESIUM OXIDE 400MG TAB (MAG-OX) PO SCH (09:16)
[2023-01-23] MEDS: CHLORTHALIDONE 25 MG TAB PO SCH (09:16)
[2023-01-23] MEDS: FOLIC ACID 1MG TAB PO SCH (09:17)
[2023-01-23] MEDS: DOCUSATE SODIUM 100MG CAPSULE PO SCH (09:20)
[2023-01-23] MEDS ORDERED: ALDA50TA2 PO (11:00)
[2023-01-23] MEDS ORDERED: MECL-86 PO (11:00)
[2023-01-23] MEDS ORDERED: ATOR40TA75 PO (11:00)
[2023-01-23] MEDS ORDERED: CHLO25TA PO (11:00)
[2023-01-23 12:00] VITALS: BP 198/100; TEMP 98; O2SAT 97
[2023-01-23 12:35] VITALS: BP 167/85
[2023-01-23] MEDS ORDERED: SPIR100T3 PO (13:00)
[2023-01-23] MEDS: ACETAMINOPHEN TAB 650MG DOSE (2X325MG) PO PRN (14:30)
== END 2023-01-23 14:40 | disposition home or self-care (01) ==
LOC: M ED 13:36 → M ED INP 17:59 → M PCU 20:11
PROVIDERS: ADMIT Student in an Organized Health Care Education/Training Program; ATTEND Student in an Organized Health Care Education/Training Program
DX: R42 Dizziness and giddiness (principal); I10 Essential (primary) hypertension; E26.9 Hyperaldosteronism, unspecified; R51.9 Headache, unspecified; E87.6 Hypokalemia; F10.90 Alcohol use, unspecified, uncomplicated; E78.5 Hyperlipidemia, unspecified; J98.8 Other specified respiratory disorders; Z87.891 Personal history of nicotine dependence; Z86.69 Personal history of other diseases of the nervous system and sense organs; Z91.148 Patient's other noncompliance with medication regimen for other reason; R07.9 Chest pain, unspecified; Z79.899 Other long term (current) drug therapy; Z88.5 Allergy status to narcotic agent; Z91.030 Bee allergy status
CPT/HCPCS: 36415; 70450; 70496; 70498; 71045; 76775; 80048; 80061; 80076; 82088; 82550; 82553; 83036; 83690; 83735; 83880; 84244; 84439; 84443; 84484; 85025; 85027; 85610; 85730; 87631; 93005; 93041; 93975; 94760; 96374; 97161; 97165; 97535; 99285; G0378; J1885; Q9967

== ENCOUNTER → 2023-01-27 | Outpatient (REF) | payer BC, MEDICARE ==
[~2023-01-27] MED LIST changes: +ACET-897 PO; +ALDA50TA2 PO; +CHLO25TA PO; +MECL-86 PO; +SPIR100T3 PO
== END ==
LOC: M SFHCPLAZ 14:54
PROVIDERS: ATTEND Family Medicine
DX: E87.6 Hypokalemia (principal); I10 Essential (primary) hypertension

== ENCOUNTER → 2023-01-27 | Outpatient (CLI) | payer BC, MEDICARE | LOC: M CARPUL 10:22 | PROVIDERS: ATTEND Student in an Organized Health Care Education/Training Program | DX: I35.8 Other nonrheumatic aortic valve disorders (principal); I11.0 Hypertensive heart disease with heart failure; I50.9 Heart failure, unspecified ==

== ENCOUNTER → 2023-01-27 | Outpatient (CLI) | payer BC, MEDICARE ==
[2023-01-27 17:43] LABS: BLOOD UREA NITROGEN 17 MG/DL (9-23); CALCIUM LEVEL 10.2 MG/DL (8.5-10.1); CARBON DIOXIDE LEVEL 29 MMOL/L (20-31); CHLORIDE LEVEL 102 MMOL/L (98-107); GLOMERULAR FILTRATION RATE > 60.0 (>56); GLUCOSE, FASTING 106 MG/DL (60-100); MAGNESIUM LEVEL 1.7 MG/DL (1.8-2.4); POTASSIUM SERUM 4.4 MMOL/L (3.5-5.1); SODIUM LEVEL 136 MMOL/L (136-145)
== END ==
LOC: M LAB 15:01 → M PLALAB 15:01
PROVIDERS: ATTEND Student in an Organized Health Care Education/Training Program
DX: E87.6 Hypokalemia (principal); I10 Essential (primary) hypertension

== ENCOUNTER → 2023-04-28 | Outpatient (CLI) | payer MEDICARE ==
[2023-04-28 11:56] LABS: BLOOD UREA NITROGEN 14 MG/DL (9-23); CALCIUM LEVEL 9.9 MG/DL (8.5-10.1); CARBON DIOXIDE LEVEL 31 MMOL/L (20-31); CHLORIDE LEVEL 97 MMOL/L (98-107); CREATININE FOR GFR 0.62 MG/DL (0.70-1.30); GLOMERULAR FILTRATION RATE > 60.0 (>56); GLUCOSE, FASTING 111 MG/DL (60-100); POTASSIUM SERUM 3.8 MMOL/L (3.5-5.1); SODIUM LEVEL 131 MMOL/L (136-145)
[2023-04-28 11:58] LABS: THYROID STIMULATING HORMONE 0.889 uIU/ML (0.55-4.78)
[2023-04-28 11:59] LABS: FREE T4 1.33 NG/DL (0.89-1.76)
== END ==
LOC: M PLALAB 07:48
PROVIDERS: ATTEND Student in an Organized Health Care Education/Training Program
DX: I10 Essential (primary) hypertension (principal)

== ENCOUNTER → 2023-07-03 | Outpatient (CLI) | payer MEDICARE ==
[~2023-07-03] MED LIST changes: -HYDR-3910 PO; +HYDR25TA87 PO
[2023-07-03 12:51] LABS: BLOOD UREA NITROGEN 13 MG/DL (9-23); CALCIUM LEVEL 9.1 MG/DL (8.5-10.1); CARBON DIOXIDE LEVEL 31 MMOL/L (20-31); CHLORIDE LEVEL 99 MMOL/L (98-107); CHOLESTEROL LEVEL 186 MG/DL (<200); CHOLESTEROL RISK RATIO 5.05 (<5); CREATININE FOR GFR 0.69 MG/DL (0.70-1.30); GLOMERULAR FILTRATION RATE > 60.0 (>56); GLUCOSE, FASTING 139 MG/DL (60-100); HDL CHOLESTEROL 36.8 MG/DL (>40); LDL CHOLESTEROL 73.8 MG/DL (<100); NON-HDL-C 149.2 MG/DL; POTASSIUM SERUM 4.5 MMOL/L (3.5-5.1); SODIUM LEVEL 133 MMOL/L (136-145); TRIGLYCERIDES LEVEL 377 MG/DL (<150)
== END ==
LOC: M PLALAB 07:48
PROVIDERS: ATTEND Student in an Organized Health Care Education/Training Program
DX: E78.00 Pure hypercholesterolemia, unspecified (principal); E87.1 Hypo-osmolality and hyponatremia

== ENCOUNTER → 2023-10-06 | Outpatient (REF) | payer BC, MEDICARE ==
[~2023-10-06] MED LIST changes: +FLUO-290 PO; -FLUO10CA18 PO
== END ==
LOC: M SFHCPLAZ 09:00
PROVIDERS: ATTEND Student in an Organized Health Care Education/Training Program
DX: E87.1 Hypo-osmolality and hyponatremia (principal); R73.01 Impaired fasting glucose

== ENCOUNTER → 2023-10-09 | Outpatient (CLI) | payer MEDICARE ==
[2023-10-09 11:42] LABS: HEMOGLOBIN A1c 5.8 % (4.0-6.0)
[2023-10-09 11:54] LABS: BLOOD UREA NITROGEN 15 MG/DL (9-23); CALCIUM LEVEL 9.6 MG/DL (8.5-10.1); CARBON DIOXIDE LEVEL 27 MMOL/L (20-31); CHLORIDE LEVEL 101 MMOL/L (98-107); CHOLESTEROL LEVEL 155 MG/DL (<200); CHOLESTEROL RISK RATIO 4.74 (<5); CREATININE FOR GFR 0.64 MG/DL (0.70-1.30); GLOMERULAR FILTRATION RATE > 60.0 (>56); GLUCOSE, FASTING 113 MG/DL (60-100); HDL CHOLESTEROL 32.7 MG/DL (>40); NON-HDL-C 122.3 MG/DL; POTASSIUM SERUM 3.9 MMOL/L (3.5-5.1); SODIUM LEVEL 132 MMOL/L (136-145); TRIGLYCERIDES LEVEL 497 MG/DL (<150)
[2023-10-12 14:51] LABS: LYME TOTAL ANTIBODY CIA <= 0.90 Index (<=0.90)
== END ==
LOC: M PLALAB 07:32
PROVIDERS: ATTEND Student in an Organized Health Care Education/Training Program
DX: E87.1 Hypo-osmolality and hyponatremia (principal); E78.00 Pure hypercholesterolemia, unspecified

== ENCOUNTER → 2024-01-26 | Outpatient (CLI) | payer MEDICARE ==
[2024-01-26 10:18] LABS: BASO # 0.1 10^3/uL (0.0-0.2); BASO % 0.9 % (0.0-1.0); EOS # 0.3 10^3/uL (0.0-0.5); EOS % 3.6 % (0.0-3.0); HEMATOCRIT 39.8 % (42.0-52.0); HEMOGLOBIN 14.3 g/dl (13.5-17.5); LYMPH % 33.6 % (24.0-44.0); MEAN CORPUSCULAR HGB CONC 35.9 g/dl (32.0-36.5); MEAN CORPUSCULAR VOLUME 91.9 fl (80.0-96.0); MONO # 0.9 10^3/uL (0.0-0.8); MONO % 10.3 % (2.0-8.0); NEUTROPHILS # 4.5 10^3/uL (1.5-8.5); NEUTROPHILS % 51.1 % (36.0-66.0); PLATELET COUNT, AUTOMATED 285 10^3/uL (150-450); RED BLOOD COUNT 4.33 10^6/uL (4.30-6.10); WHITE BLOOD COUNT 8.8 10^3/uL (4.0-10.0)
[2024-01-26 10:46] LABS: BLOOD UREA NITROGEN 12 MG/DL (9-23); CARBON DIOXIDE LEVEL 32 MMOL/L (20-31); CHLORIDE LEVEL 95 MMOL/L (98-107); CHOLESTEROL LEVEL 170 MG/DL (<200); CREATININE FOR GFR 0.68 MG/DL (0.70-1.30); GLOMERULAR FILTRATION RATE > 60.0 (>56); GLUCOSE, FASTING 117 MG/DL (60-100); HDL CHOLESTEROL 42.5 MG/DL (>40); LDL CHOLESTEROL 92.3 MG/DL (<100); NON-HDL-C 127.5 MG/DL; POTASSIUM SERUM 4.5 MMOL/L (3.5-5.1); SODIUM LEVEL 132 MMOL/L (136-145); TRIGLYCERIDES LEVEL 176 MG/DL (<150)
[2024-01-26 10:59] LABS: HEMOGLOBIN A1c 5.5 % (4.0-6.0)
[2024-01-27 08:33] LABS: MAGNESIUM LEVEL 1.8 MG/DL (1.8-2.4); PSA SCREENING 0.54 NG/ML (< 4.00)
== END ==
LOC: M PLALAB 07:25
PROVIDERS: ATTEND Student in an Organized Health Care Education/Training Program
DX: Z00.00 Encounter for general adult medical examination without abnormal findings (principal); G47.62 Sleep related leg cramps; R73.03 Prediabetes; E78.00 Pure hypercholesterolemia, unspecified
CPT/HCPCS: 36415; 80048; 80061; 83036; 83735; 85025; G0103

== ENCOUNTER → 2024-03-11 | Outpatient (CLI) | payer MEDICARE | LOC: M RAD 07:35 | PROVIDERS: ATTEND Student in an Organized Health Care Education/Training Program | DX: Z12.2 Encounter for screening for malignant neoplasm of respiratory organs (principal); Z87.891 Personal history of nicotine dependence ==

== ENCOUNTER → 2024-12-05 | Outpatient (CLI) | payer MEDICARE ==
[2024-12-05 11:16] LABS: PLATELET COUNT, AUTOMATED 271 10^3/uL (150-450)
[2024-12-05 11:38] LABS: ESTIMATED AVERAGE GLUCOSE 120.0 MG/DL (60-110)
[2024-12-05 11:49] LABS: ALT/SGPT 38 U/L (7.0-40); AST/SGOT 35 U/L (<34); CALCIUM LEVEL 8.4 MG/DL (8.3-10.6); CARBON DIOXIDE LEVEL 29 MMOL/L (20-31); CHLORIDE LEVEL 98 MMOL/L (98-107); CHOLESTEROL LEVEL 134 MG/DL (<200); CHOLESTEROL RISK RATIO 3.08 (<5); CREATININE FOR GFR 0.64 MG/DL (0.70-1.30); GLOMERULAR FILTRATION RATE > 90.0 (>49); LDL CHOLESTEROL 40.3 MG/DL (<100); NON-HDL-C 90.5 MG/DL; POTASSIUM SERUM 3.7 MMOL/L (3.5-5.1); SODIUM LEVEL 135 MMOL/L (136-145); TRIGLYCERIDES LEVEL 251 MG/DL (<150)
== END ==
LOC: M PLALAB 07:30
PROVIDERS: ATTEND Family Medicine
DX: Z00.00 Encounter for general adult medical examination without abnormal findings (principal); I10 Essential (primary) hypertension; N52.2 Drug-induced erectile dysfunction; F41.9 Anxiety disorder, unspecified; R73.03 Prediabetes; Z87.891 Personal history of nicotine dependence; E78.00 Pure hypercholesterolemia, unspecified; F10.20 Alcohol dependence, uncomplicated

== ENCOUNTER → 2025-02-20 | Outpatient (CLI) | payer MEDICARE ==
[~2025-02-20] MED LIST changes: +CARB-19 PO; -CARB1TAB20 PO
[2025-02-22 12:23] LABS: PSA % FREE 29.0 % (calc) (>25); PSA FREE 0.2 ng/mL; PSA TOTAL 0.7 ng/mL (< OR = 4.0)
== END ==
LOC: M PLALAB 07:31
PROVIDERS: ATTEND Student in an Organized Health Care Education/Training Program
DX: Z00.00 Encounter for general adult medical examination without abnormal findings (principal)

== ENCOUNTER → 2025-04-07 | Outpatient (CLI) | payer MEDICARE | LOC: M RAD 06:43 | PROVIDERS: ATTEND Student in an Organized Health Care Education/Training Program | DX: Z87.891 Personal history of nicotine dependence (principal) ==